=== PATIENT | female | born 1935 | race Caucasian/White ===

== ENCOUNTER 2017-09-25 06:23 | Day surgery (SDC) | payer OTHER ==
[2017-09-25] MEDS: BETADINE OPTH PREP OP PRN ×2 (07:01→08:05)
[2017-09-25] MEDS: TETRACAINE 0.5% OPTH SOL OP PRN ×2 (07:01→08:02)
[2017-09-25] MEDS: CYCLOGYL 2% OPTH OP PRN ×3 (07:02→07:12)
[2017-09-25 07:28] VITALS: TEMP 98.6
[2017-09-25] MEDS ORDERED: DEX-MOXI-KETOR OPTH INJ 1/0.5/0.4 MG/ML IO ONE (07:30)
[2017-09-25] MEDS ORDERED: LIDOCAINE 1%/PHENYLEPHRINE 1.5% BSS (SURGERY) INTRAOCULA ONE (07:30)
[2017-09-25] MEDS ORDERED: BRIMONIDINE TARTRATE 0.2% OPTH SOL OP PRN (07:30)
[2017-09-25] MEDS ORDERED: ZOFRAN 4 MG/2 ML IVP ONE (07:30)
[2017-09-25] MEDS ORDERED: AK-DILATE 10% OPTH SOL OP PRN (07:30)
[2017-09-25] MEDS ORDERED: LIDOCAINE 1% 20 ML MDV ID STA (07:30)
[2017-09-25] MEDS ORDERED: NIRAVAM ODT (SURGERY) PO PRN (07:30)
[2017-09-25] MEDS ORDERED: BSS WITH EPINEPHRINE OP ONE (07:30)
[2017-09-25] MEDS ORDERED: DIPRIVAN 20 ML VIAL IVP ONE (08:05)
[2017-09-25] MEDS ORDERED: VERSED ONE (08:05)
[2017-09-27 16:43] VITALS: BP 142/67
== END 2017-09-25 09:45 | disposition home or self-care (01) ==
LOC: SURG 06:23
PROVIDERS: ATTEND Ophthalmology
DX: H25.812 Combined forms of age-related cataract, left eye (principal)

== ENCOUNTER 2017-12-11 06:43 | Day surgery (SDC) | payer OTHER ==
[2017-12-11] MEDS: TETRACAINE 0.5% UNIT-DOSE OP PRN ×2 (07:00→07:33)
[2017-12-11] MEDS: BETADINE OPTH PREP OP PRN ×2 (07:00→07:33)
[2017-12-11] MEDS: CYCLOGYL 2% OPTH OP PRN ×3 (07:01→07:11)
[2017-12-11] MEDS ORDERED: BRIMONIDINE TARTRATE 0.2% OPTH SOL OP PRN (07:17)
[2017-12-11] MEDS ORDERED: DEX-MOXI-KETOR OPTH INJ 1/0.5/0.4 MG/ML IO ONE (07:17)
[2017-12-11] MEDS ORDERED: LIDOCAINE 1%/PHENYLEPHRINE 1.5% BSS (SURGERY) INTRAOCULA ONE (07:17)
[2017-12-11] MEDS ORDERED: ZOFRAN 4 MG/2 ML IVP ONE (07:17)
[2017-12-11] MEDS ORDERED: LIDOCAINE 1% 20 ML MDV ID STA (07:17)
[2017-12-11] MEDS ORDERED: BSS WITH EPINEPHRINE OP ONE (07:17)
[2017-12-11 07:24] VITALS: TEMP 9704
[2017-12-11] MEDS ORDERED: SUBLIMAZE ONE (07:51)
[2017-12-11] MEDS ORDERED: VERSED ONE (07:51)
[2017-12-19 14:11] VITALS: BP 123/67
== END 2017-12-11 08:55 | disposition home or self-care (01) ==
LOC: SURG 06:43
PROVIDERS: ATTEND Ophthalmology
DX: H26.8 Other specified cataract (principal)